=== PATIENT | female | born 2005 | race African-American/Black ===

== ENCOUNTER 2023-02-14 21:37 | Emergency (ER) | payer OTHER, SELFPAY ==
[2023-02-14 21:43] VITALS: BP 124/79; PULSE 95; RESP 16; O2SAT 99; BMI 20.2
[2023-02-14 21:52] VITALS: TEMP 37.4
--- NOTE | 2023-02-14 21:52 | PC.NURSE ---
pain in rib area from coughing
--- NOTE | 2023-02-14 21:53 | XR_ITS ---
The [address] [address] Patient Name: RAVI SRINIVASAN MRN: [id number] date: 2005 Sex: F Assigned Patient Location: ER Current Patient Location: Accession/Order Number: [id number] Exam Date: 02/14/2023 22:18 Report Date: 02/14/2023 23:15 At the request of: MARA BEDOLLA Procedure: XR chest 2V EXAM: XR chest 2V HISTORY: cough COMPARISON: None. TECHNIQUE: PA and lateral views FINDINGS: The cardiovascular silhouette is normal. Lung grant are well-expanded and clear. Pleural spaces are clear. The bony structures are unremarkable. XR/XR chest 2V IMPRESSION: No evidence for acute cardiopulmonary disease. Electronically authenticated by: Reta FRANKS Date: 02/14/2023 23:15
--- NOTE | 2023-02-14 21:53 | PC.NURSE ---
lungs clear in all 4 grant
[2023-02-14 22:13] LABS: SARS-CoV-2 Ag POSITIVE (NEGATIVE)
--- NOTE | 2023-02-14 22:18 | ED.URI1 ---
HPI - URI/Sore Throat General Chief Complaint: Upper Respiratory Infection Stated Complaint: SHORTNESS OF BREATH, UPPER ABDOMINAL PAIN Time Seen by Provider: 02/14/23 22:18 Source: patient History of Present Illness HPI Narrative: Patient presents to emergency department complaining of cough which is nonproductive. Shortness of breath, sneezing and headache ongoing for the last 2 days. Patient states she now has pain to the left lower ribs when she coughs. She has been taking Tylenol at home. Has not taking any Motrin. She has not taking anything else [id number] such as a disc and just doesn't or antitussives. Patient is not vaccinated against Covid-19 but she did have covid19 2 years ago. She has chills and denies any fever. She has no previous history of lung disease. She denies any nausea, vomiting, diarrhea, constipation, or abdominal pain. Related Data Allergies Allergy/AdvReac Type Severity Reaction Status Date / Time No Known Drug Allergies Allergy Verified 02/14/23 21:43 Review of Systems ROS Status of ROS 10 or more systems reviewed and unremarkable except as noted in history and below Exam Narrative Exam Narrative: Nurses notes and vital signs reviewed and patient is not hypoxic. General: Nontoxic, Well-appearing and in no apparent distress. Skin: Warm, dry, no pallor noted. No Rash Head: Normocephalic, atraumatic. Neck: Supple, non-tender. Eye: Pupils are equal, round and EOMI. No scleral icterus. Ears, Nose, Mouth, and Throat: TM clear, no posterior oropharynx erythema or nasal mucosal hypertrophy, uvula is mid-line Oral mucosa is moist Cardiovascular: Regular Rate and Rhythm without murmur, gallop or rub. Respiratory: No accessory muscle use or respiratory distress. Lungs are clear to auscultation, no wheezing, rales or rhonchi Chest Wall: left lateral rib 8-9 tenderness Back: No midline thoracic or lumbar vertebral tenderness. No CVA tenderness Musculoskeletal: normal ROM, no calf or popliteal tenderness, no lower extremity edema/swelling GI: Abdomen is soft, non-distended. Normal bowel sounds. No masses appreciated. No tenderness to palpation. No rebound, guarding, or rigidity noted. Neurological: A&O x4. No cranial nerve dysfunction observed. No truncal ataxia. Moves all extremities. Sensation intact. Psychiatric: Cooperative and interactive. Normal mood and affect. Constitutional Vital Signs, click to edit/add: Last Vital Signs Temp 99.3 F 02/14/23 21:52 Pulse 95 H 02/14/23 21:43 Resp 16 02/14/23 21:43 BP 124/79 02/14/23 21:43 Pulse Ox 99 02/14/23 21:43 O2 Del Method Room Air 02/14/23 21:53 Course Vital Signs Vital signs: Vital Signs Pulse Rate 95 H 02/14/23 21:43 Respiratory Rate 16 02/14/23 21:43 Blood Pressure 124/79 02/14/23 21:43 Pulse Oximetry 99 02/14/23 21:43 Oxygen Delivery Method Room Air 02/14/23 21:43 Temperature 99.3 F 02/14/23 21:52 Pulse Rate 95 H 02/14/23 21:43 Respiratory Rate 16 02/14/23 21:43 Blood Pressure 124/79 02/14/23 21:43 Pulse Oximetry 99 02/14/23 21:43 Oxygen Delivery Method Room Air 02/14/23 21:53 MDM - URI/Sore Throat MDM Narrative Medical decision making narrative: Patient is nontoxic, not hypoxic. She has no underlying. Lungs clear bilateral. Chest x-rays unremarkable. Results discussed with patient. Patient is advised supportive 19 for 5 days and take [id number] analgesics and decongestants. At this time the patient is without objective evidence of an acute process requiring hospitalization or inpatient management. The patient has remained hemodynamically stable. No additional indication for emergent studies at this time. I answered all questions. Discussed discharge instructions including standard anticipatory guidance and what should prompt a return to the emergency department, including if they get worse are not getting better or develops any new or concerning symptoms. I've given them specific time frame in which to follow-up, and who to follow-up with. The patient demonstrates understanding. Patient is nontoxic and stable for discharge with outpatient follow-up. This note was created with the assistance of a speech recognition program. Although the intention is to generate documents that actually reflects the content of the visit, no guarantees can be provided that every mistake has been identified and corrected by editing. Differential Diagnosis Differential diagnosis: Likely upper respiratory infection and viral infection Lab Data Attestation: I reviewed the patient's lab results. Labs: Lab Results 02/14/23 Range/Units 21:47 SARS-CoV-2 (PCR) Positive A (NEGATIVE) Discharge Plan Discharge Chief Complaint: Upper Respiratory Infection Clinical Impression: COVID-19, Upper respiratory infection Patient Disposition: Home, Self-Care Time of Disposition Decision: 22:56 Condition: Good Mode of Transportation: Private Vehicle Instructions: COVID-19 (Coronavirus Disease 2019) (ED), How to Recover from COVID-19 at Home (ED) Additional Instructions: Patient advised to rest, stay at home, practice social distancing, take Motrin and Tylenol for pain and fever if not allergic, stay well hydrated with Gatorade or similar drinks if vomiting or eat as tolerated if not and take any meds as prescribed. Reviewed reasons to return including rapid increase in respiratory rate, shortness of breath, confusion, inability to keep down sips of swallowed liquids for more than 24 hours. Asked patient to encourage any ill contacts to stay home and practice similar advice. Stand Alone Forms: Portal Instructions Referrals: MONA PAYNE [Primary Care Provider] - 1 week Discharge Date/Time: 02/14/23 23:05
== END 2023-02-14 23:05 | disposition home or self-care (01) ==
PROVIDERS: Emergency Provider Emergency Medicine; PCP Family Medicine
DX: U07.1 COVID-19 (principal); J06.9 Acute upper respiratory infection, unspecified
CPT/HCPCS: 71046; 87811; 99284

== ENCOUNTER 2024-12-02 22:55 | Emergency (ER) | payer OTHER, SELFPAY ==
[2024-12-02 22:57] VITALS: BP 139/68; PULSE 64; TEMP 36.8; O2SAT 100; BMI 22.5
[2024-12-02 23:07] VITALS: O2SAT 100
--- NOTE | 2024-12-02 23:15 | XR_ITS ---
[address] [address] Patient Name: RAVI SRINIVASAN MRN: [id number] date: 2005 Sex: F Assigned Patient Location: ER Current Patient Location: ER Accession/Order Number: [id number] Exam Date: 12/02/2024 23:40 Report Date: 12/02/2024 23:41 At the request of: BRITTANY TRINIDAD MD Procedure: XR chest 2V XR chest 2V 12/02/2024 11:34 PM SIGNS AND SYMPTOMS: Cough for 4 days PROTOCOL: Frontal and lateral radiograph of the chest COMPARISON: 02/14/2023 FINDINGS: The trachea is midline. The heart and mediastinal structures are within normal limits. The lung parenchyma is clear. The bony thorax is intact. XR/XR chest 2V IMPRESSION: No acute cardiopulmonary pathology. Impression dictated by: Baldemar Maldonado M.D. 12/02/2024 11:41 PM Dictation Location: [place] [address] Electronically authenticated by: [id number] Y Date: 12/02/2024 23:41
--- NOTE | 2024-12-02 23:16 | ED.URI1 ---
HPI - URI/Sore Throat General Chief Complaint: Upper Respiratory Infection Stated Complaint: cough, congestion,sob Time Seen by Provider: 12/02/24 23:12 Source: patient Limitations: no limitations History of Present Illness HPI Narrative: ill for 4 days. Recurrent dry cough and nasal congestion. Chest feels heavy. No history of asthma and does not smoke cigarettes. No GI complaints Related Data Home Medications ?Medication ?Instructions ?Recorded ?Confirmed No Known Home Medications 12/02/24 12/02/24 Allergies Allergy/AdvReac Type Severity Reaction Status Date / Time No Known Drug Allergies Allergy Verified 12/02/24 23:04 Review of Systems ROS Status of ROS 10 or more systems reviewed and unremarkable except as noted in history and below PFSH PFSH Social History Little interest or pleasure in doing things: not at all Feeling down, depressed, or hopeless: not at all Exam Constitutional Vital Signs, click to edit/add: Last Vital Signs Temp 98.3 F 12/02/24 22:57 Pulse 64 12/02/24 22:57 Resp 18 12/02/24 22:57 BP 139/68 12/02/24 22:57 Pulse Ox 100 12/02/24 23:07 O2 Del Method Room Air 12/02/24 23:07 Common normals: no apparent distress, average body habitus, oriented x3, no limitations, healthy appearing, alert and well nourished [facility] Common normals: normocephalic Eye Common normals: EOMs intact bilaterally and conjunctivae normal Respiratory Common normals: normal respiratory effort, no retractions, no use of accessory muscles and clear to auscultation bilaterally Cardio Common normals: regular rate, regular rhythm, S1 normal heart sound and S2 normal heart sound GI Common normals: Normal to inspection, nondistended, normoactive bowel sounds present and soft to palpation Extremity Common normals: normal to inspection and full ROM Neuro Common normals: oriented x3, CN's II-XII intact bilaterally, moves all extremities and no focal motor deficits Psych Appearance: grossly normal Course Vital Signs Vital signs: Vital Signs Temperature 98.3 F 12/02/24 22:57 Pulse Rate 64 12/02/24 22:57 Respiratory Rate 18 12/02/24 22:57 Blood Pressure 139/68 12/02/24 22:57 Pulse Oximetry 100 12/02/24 22:57 Oxygen Delivery Method Room Air 12/02/24 22:57 Temperature 98.3 F 12/02/24 22:57 Pulse Rate 64 12/02/24 22:57 Respiratory Rate 18 12/02/24 22:57 Blood Pressure 139/68 12/02/24 22:57 Pulse Oximetry 100 12/02/24 23:07 Oxygen Delivery Method Room Air 12/02/24 23:07 MDM - URI/Sore Throat MDM Narrative Medical decision making narrative: patient presents with cough. recurrent cough. No fever. No nausea or vomiting. Not short of breath. workup including labs and cxray unremarkable. Patient informed of working diagnosis of URI and discharged home with a prescription for albuterol for her bronchospastic cough Lab Data Labs: Lab Results 12/02/24 Range/Units 23:25 WBC 11.6 H (4.0-11.0) 10^3/uL RBC 3.94 L (4.20-5.40) 10^6/uL Hgb 11.1 L (12.0-16.0) g/dL Hct 33.8 L (36.0-48.0) % MCV 85.8 (81.0-99.0) fL MCH 28.2 (26.7-34.0) pg MCHC 32.8 (29.9-35.2) g/dL RDW 13.1 (11.0-15.0) % Plt Count 211 (150-450) 10^3/uL MPV 11.4 (9.5-13.5) fL Neut % (Auto) 77.5 H (43.0-75.0) % Lymph % (Auto) 12.9 L (20.5-60.0) % [place] % (Auto) 6.9 (1.7-12.0) % Eos % (Auto) 2.2 (0.9-7.0) % Baso % (Auto) 0.3 (0.2-2.0) % Neut # (Auto) 9.0 H (1.4-6.5) 10^3/uL Lymph # (Auto) 1.5 (1.2-3.8) 10^3/uL [place] # (Auto) 0.8 (0.3-0.8) 10^3/uL Eos # (Auto) 0.3 (0.0-0.7) 10^3/uL Baso # (Auto) 0.0 (0.0-0.1) 10^3/uL Abs Immat Gran (auto) 0.02 (0.00-0.03) 10^3/uL Imm/Tot Granulo (auto) 0.2 (0.0-0.5) % Sodium 140 (136-145) mmol/L Potassium 3.3 L (3.5-5.1) mmol/L Chloride 105 (98-107) mmol/L Carbon Dioxide 26.4 (21.0-32.0) mmol/L Anion Gap 11.9 BUN 10.0 (7.0-18.0) mg/dL Creatinine 0.70 (0.55-1.02) mg/dL Est GFR ( Amer) >60 (>=60 mL/min/1.73m^2) Est GFR (Non-Af Amer) >60 (>=60 mL/min/1.73m^2) BUN/Creatinine Ratio 14.3 Glucose 92 (74-106) mg/dL Calcium 9.3 (8.5-10.1) mg/dL Imaging Data Chest x-ray: Radiologist's impression: ITS Impressions Chest X-Ray 12/02/24 23:15 IMPRESSION: No acute cardiopulmonary pathology. Impression dictated by: Baldemar Maldonado M.D. 12/02/2024 11:41 PM Dictation Location: [place] [address] Electronically authenticated by: [id number] Y Date: 12/02/2024 23:41 Discharge Plan Discharge Chief Complaint: Upper Respiratory Infection Clinical Impression: Upper respiratory infection Patient Disposition: Home, Self-Care Prescriptions / Home Meds: No Action No Known Home Medications Print Language: Estonian Instructions: Upper Respiratory Infection (ED) Additional Instructions: follow up with your doctor for a recheck in 2-3 days Referrals: MONA PAYNE [Primary Care Provider, Family Practice] - 1 week Discharge Date/Time: 12/03/24 00:33
[2024-12-02 23:31] LABS: Basophils Percent Auto 0.3 % (0.2-2.0); Eosinophils Absolute Auto 0.3 10^3/uL (0.0-0.7); Eosinophils Percent Auto 2.2 % (0.9-7.0); Hematocrit 33.8 % (36.0-48.0); Hemoglobin 11.1 g/dL (12.0-16.0); Immature Granulocytes Abs Auto 0.02 10^3/uL (0.00-0.03); Immature Granulocytes Pct Auto 0.2 % (0.0-0.5); Lymphocytes Absolute Auto 1.5 10^3/uL (1.2-3.8); Lymphocytes Percent Auto 12.9 % (20.5-60.0); Mean Corpuscular HGB Conc 32.8 g/dL (29.9-35.2); Mean Corpuscular Hemoglobin 28.2 pg (26.7-34.0); Mean Corpuscular Volume 85.8 fL (81.0-99.0); Mean Platelet Volume 11.4 fL (9.5-13.5); Monocytes Absolute Auto 0.8 10^3/uL (0.3-0.8); Monocytes Percent Auto 6.9 % (1.7-12.0); Neutrophils Percent Auto 77.5 % (43.0-75.0); Platelet Count 211 10^3/uL (150-450); Red Blood Count 3.94 10^6/uL (4.20-5.40); Red Cell Distribution Width 13.1 % (11.0-15.0); White Blood Count 11.6 10^3/uL (4.0-11.0)
[2024-12-02 23:39] LABS: Anion Gap 11.9; BUN Creatinine Ratio 14.3; Calcium 9.3 mg/dL (8.5-10.1); Carbon Dioxide 26.4 mmol/L (21.0-32.0); Chloride 105 mmol/L (98-107); Estimated GFR (African America >60 (>=60 mL/min/1.73m^2); Estimated GFR (Non-African Ame >60 (>=60 mL/min/1.73m^2); Glucose 92 mg/dL (74-106); Potassium 3.3 mmol/L (3.5-5.1); Sodium 140 mmol/L (136-145)
[2024-12-02] MEDS: 0.9 % SODIUM CHLORIDE 1,000 ML 1000 ML IV (23:49)
[2024-12-03] MEDS: ALBUTEROL SULFATE 200 PUFF/6.7 GM INHALER IH (00:27)
== END 2024-12-03 00:33 | disposition home or self-care (01) ==
PROVIDERS: Emergency Provider Internal Medicine; PCP Family Medicine
DX: J06.9 Acute upper respiratory infection, unspecified (principal); R05.9 Cough, unspecified; R09.81 Nasal congestion
CPT/HCPCS: 36415; 71046; 80048; 85025; 99285